=== PATIENT | male | born 1965 | race Caucasian/White ===

== ENCOUNTER → 2017-07-27 | Outpatient (CLI) | payer BC ==
[2016-03-08 13:15] VITALS: BP 120/74
[~2017-07-27] MED LIST: ASPI-482 PO; CARV12.52 PO; METH-38 PO; MULT-460 PO; NITR0.4T SL; OXYC-323 PO; PANT40TA3 PO; SIMV40TA3 PO
--- NOTE | 2017-07-27 15:12 | CARD ---
APPROVED REPORT EXAM: Two-dimensional and M-mode echocardiogram with Doppler and color Doppler. Other Information Quality : GoodHR: 58bpm INDICATION CAD 2D DIMENSIONS Left Atrium(2D)3.9 (1.6-4.0cm)IVSd1.5 (0.7-1.1cm) Aortic Root(2D)3.3 (2.0-3.7cm)LVDd5.3 (3.9-5.9cm) LVOT Diameter2.1 (1.8-2.4cm)PWd1.1 (0.7-1.1cm) LVDs3.5 (2.5-4.0cm)FS (%) 32.4 % SV79.9 mlLVEF(%)60.3 (>50%) Aortic Valve AoV Peak Jt.152.8cm/sAoV VTI36.3cm AO Peak GR.9.3mmHgLVOT Peak Jt.110.7cm/s AO Mean GR.5mmHgAVA (VMAX)1.85cm2 Mitral Valve MV E Usmeizum62.2cm/sMV DECEL QADH544rf MV A Fajowgoo77.6cm/sMV ZMI32um E/A Ratio1.0MVA (PHT)2.44cm2 TDI E/Lateral E'6.9E/Medial E'12.9 Pulmonary Valve PV Peak Lxthhzhb960.1cm/sPV Peak Grad.4mmHg Tricuspid Valve TR P. Mhrdcigh243ge/sTR Peak Gr.9mmHg Pulmonary Vein S1 Shgeehxp49.5cm/sD2 Sdwavafd08.6cm/s LEFT VENTRICLE The left ventricle is normal size. There is mild septal hypertrophy. The left ventricular systolic fu nction is normal and the ejection fraction is within normal range. EF 55% There is grossly normal LV segmental wall motion. The left ventricular diastolic function and filling is normal for age. RIGHT VENTRICLE The right ventricle is normal size. The right ventricular systolic function is normal. ATRIA The left atrium size is normal. The right atrium size is normal. The interatrial septum is intact wit h no evidence for an atrial septal defect or patent foramen ovale as noted on 2-D or Doppler imaging. AORTIC VALVE The aortic valve is thickened but opens well. Doppler and Color Flow revealed no significant aortic r egurgitation. There is no significant aortic valvular stenosis. There is no aortic valvular vegetatio n. MITRAL VALVE The mitral valve is thickened but opens well. There is no evidence of mitral valve prolapse. There is no mitral valve stenosis. Doppler and Color Flow revealed no mitral valve regurgitation noted. TRICUSPID VALVE The tricuspid valve leaflets are thickened , but open well. Doppler and Color Flow revealed trace tri cuspid regurgitation. There is no tricuspid valve prolapse or vegetation. There is no tricuspid valve stenosis. PULMONIC VALVE Pulmonic valve was not visualized well. Doppler and Color Flow revealed mild to moderate pulmonic ab vular regurgitation. There is no pulmonic valvular stenosis. GREAT VESSELS The aortic root is normal in size. PERICARDIAL EFFUSION There is no pleural effusion. There is no evidence of significant pericardial effusion. Critical Notification Critical Value: No <Conclusion> The left ventricular systolic function is normal and the ejection fraction is within normal range. EF 55% There is grossly normal LV segmental wall motion.
== END | disposition home or self-care (01) ==
LOC: ECHO 12:31
PROVIDERS: ATTEND Internal Medicine Cardiovascular Disease
DX: I25.10 Atherosclerotic heart disease of native coronary artery without angina pectoris (principal)
CPT/HCPCS: 93306

== ENCOUNTER → 2018-01-03 | Outpatient (CLI) | payer BC | END | disposition home or self-care (01) | LOC: US 08:14 | DX: E04.1 Nontoxic single thyroid nodule (principal) | CPT/HCPCS: 76942; 88112; 88173; 88305 ==

== ENCOUNTER → 2018-09-17 | Outpatient (CLI) | payer BC ==
[2016-03-08 13:15] VITALS: BP 120/74
[~2018-09-17] MED LIST changes: +CARV12.511 PO; -CARV12.52 PO; +GADOBUTROL 7.5 MMOL/7.5 ML VIAL IV ONE; -OXYC-323 PO; +OXYC1TAB15 PO
--- NOTE | 2018-09-17 16:00 | KCIC ---
EXAMINATION: Magnetic resonance imaging (MRI) of the lumbar spine with and without contrast 09/17/2018 2:45 PM HISTORY: Chronic low back pain with radiculopathy into the right hip. History of discectomy. TECHNIQUE: Multiplanar multi-weighted MRI of the lumbar spine was performed without intravenous contrast using the standard lumbar spine protocol. Contrast information: 11 cc Gadavist. COMPARISON: None available. FINDINGS: There is minimal retrolisthesis of L4 on L5. There is congenital narrowing of the spinal canal secondary to shortened pedicles. Vertebral bodies demonstrate normal signal intensity on all sequences. There are no compression fractures. The conus medullaris terminates at the level of L1. The distal spinal cord signal intensity is normal. There is mild disc height loss with disc desiccation and annular fissures at L4-L5 and L5-S1. Disc desiccation at L2-L3. Limited views of the abdomen and pelvis show no soft tissue abnormality. The aorta is normal. L2-L3: There is disc bulge asymmetric to the left with a left far lateral disc protrusion. There is mild right and moderate left facet arthropathy. There is mild left neuroforaminal stenosis. There is no spinal canal stenosis. L3-L4: There is a moderate disc bulge with apparent right foraminal disc protrusion. Right partial facetectomy and laminectomy changes are identified. No residual right neuroforaminal stenosis. Enhancing granulation tissue is identified along the region of suspected disc protrusion suggestive of scar tissue rather than recurrent disc herniation. No spinal canal stenosis. Olli-mp-xhnbhvvi left neuroforaminal stenosis. L4-L5: There is a circumferential disc bulge with central disc protrusion. There is moderate facet arthropathy. There is mild to moderate bilateral neuroforaminal stenosis. There is mild spinal canal stenosis. L5-S1: The disc is normal in configuration. There is moderate facet arthropathy. There is no neuroforaminal stenosis. There is no spinal canal stenosis. IMPRESSION: Mild degenerative changes of the lumbar spine as described in detail above. Right partial facetectomy and laminectomy changes are identified at L3-L4 without evidence for recurrent disc herniation. Electronically signed by: Laura Alvarez MD (09/17/2018 3:55 PM) [facility]
== END | disposition home or self-care (01) ==
LOC: KCIC MRI 13:56
DX: M47.896 Other spondylosis, lumbar region (principal); M48.061 Spinal stenosis, lumbar region without neurogenic claudication; M12.88 Other specific arthropathies, not elsewhere classified, other specified site; M51.26 Other intervertebral disc displacement, lumbar region; I10 Essential (primary) hypertension
CPT/HCPCS: 72158; A9585

== ENCOUNTER → 2018-12-17 | Outpatient (CLI) | payer BC ==
[2016-03-08 13:15] VITALS: BP 120/74
[~2018-12-17] MED LIST changes: -GADOBUTROL 7.5 MMOL/7.5 ML VIAL IV ONE; +REGADENOSON 0.4 MG/5 ML DISP.SYRIN. IV ONE
--- NOTE | 2018-12-17 11:02 | CARD ---
MR#: [id number] Date of Study: 12/17/2018 Ordering Physician: ARMEN GARCIA, Referring Physician: ARMEN GARCIA Tech: Lilia Milligan RDCS APPROVED REPORT EXAM: Two-dimensional and M-mode echocardiogram with Doppler and color Doppler. Other Information Quality : Good INDICATION Cardiac Disease: CAD 2D DIMENSIONS RVDd3.4 (2.9-3.5cm)Left Atrium(2D)3.8 (1.6-4.0cm) IVSd1.2 (0.7-1.1cm)Aortic Root(2D)3.1 (2.0-3.7cm) LVDd5.3 (3.9-5.9cm)LVOT Diameter2.3 (1.8-2.4cm) PWd1.0 (0.7-1.1cm)LVDs3.9 (2.5-4.0cm) FS (%) 26.2 %SV67.5 ml LVEF(%)50.9 (>50%) Aortic Valve AoV Peak Jt.129.6cm/sAoV VTI24.9cm AO Peak GR.6.7mmHgLVOT Peak Jt.119.5cm/s LVOT VTI 25.83cmAO Mean GR.4mmHg SHANNAN (VMAX)3.83az0ALO (VTI)4.14cm2 Mitral Valve MV E Alwhxlvs83.4cm/sMV DECEL OHYU133mz MV A Diftcgpe59.3cm/sMV NMA84li E/A Ratio0.9MVA (PHT)3.81cm2 TDI E/Lateral E'6.1E/Medial E'12.7 Tricuspid Valve TR P. Dpkxfabs372qj/sRAP PSADESRT3sjNe TR Peak Gr.13ofCmWHMN12ihDl Pulmonary Vein S1 Faqqwhfp75.9cm/sD2 Ahzhvzns66.8cm/s LEFT VENTRICLE The left ventricle is normal size. There is mild asymmetric septal hypertrophy. The Ejection Fraction is 55%. Basal posterior wall hypokinesis. RIGHT VENTRICLE The right ventricle is normal size. The right ventricular systolic function is normal. ATRIA The left atrium size is normal. The right atrium size is normal. The interatrial septum is intact wit h no evidence for an atrial septal defect or patent foramen ovale as noted on 2-D or Doppler imaging. AORTIC VALVE The aortic valve is calcified but opens well. Doppler and Color Flow revealed no significant aortic r egurgitation. There is no significant aortic valvular stenosis. MITRAL VALVE The mitral valve is normal in structure and function. There is no evidence of mitral valve prolapse. There is no mitral valve stenosis. Doppler and Color Flow revealed no mitral valve regurgitation note d. TRICUSPID VALVE The tricuspid valve is normal in structure and function. Doppler and Color Flow revealed trace tricus pid regurgitation. There is no tricuspid valve stenosis. PULMONIC VALVE The pulmonic valve is not well visualized. Doppler and Color Flow revealed trace pulmonic valvular re gurgitation. There is no pulmonic valvular stenosis. GREAT VESSELS The aortic root is normal in size. The ascending aorta is normal in size. The IVC is normal in size a nd collapses >50% with inspiration. PERICARDIAL EFFUSION There is no evidence of significant pericardial effusion. Critical Notification Critical Value: No <Conclusion> Basal posterior wall hypokinesis. The Ejection Fraction is 55%. Doppler and Color Flow revealed trace tricuspid regurgitation. There is no evidence of significant pericardial effusion. Signed by : Armen Garcia, Electronically Approved : 12/17/2018 11:02:27
== END | disposition home or self-care (01) ==
LOC: NM 08:12
PROVIDERS: ATTEND Internal Medicine Cardiovascular Disease
DX: I35.8 Other nonrheumatic aortic valve disorders (principal); I51.7 Cardiomegaly; I25.10 Atherosclerotic heart disease of native coronary artery without angina pectoris
CPT/HCPCS: 93306; J2785

== ENCOUNTER → 2019-04-15 | Outpatient (CLI) | payer BC ==
[2016-03-08 13:15] VITALS: BP 120/74
[~2019-04-15] MED LIST changes: -PANT40TA3 PO; +PANT40TA77 PO; -REGADENOSON 0.4 MG/5 ML DISP.SYRIN. IV ONE
--- NOTE | 2019-04-15 15:03 | KCIC ---
THYROID ULTRASOUND: 04/15/2019 1:15 PM Indication: 53 years old Male. Thyroid swelling with history of nodules. Comparison: Thyroid ultrasound 12/13/2017. TECHNIQUE: Sonographic evaluation of the thyroid gland was performed utilizing grayscale and color Doppler imaging. FINDINGS: Right lobe: Normal in morphology and echotexture without significant hyperemia. Size: 5.1 x 1.5 x 2.2 cm Nodules: Single inferior right thyroid lobe nodule status post negative fine-needle aspiration on 01/03/2018. Nodule measures 1.1 x 0.8 x 1.2 cm and is circumscribed, solid and hypoechoic without significant interval change. Left lobe: Normal in morphology and echotexture without significant hyperemia. Size: 4.3 x 1.3 x 1.6 cm Nodules: There is a 7 x 5 x 7 mm solid, isoechoic to hypoechoic nodule in the inferior left thyroid lobe which is ill-defined without suspicious internal echogenic foci. This nodule is wider than it is tall. (TI-RADS 4) Isthmus: Unremarkable. IMPRESSION: 1. There is a stable 11 x 8 x 12 mm solid nodule in the inferior right thyroid lobe is post FNA on 01/03/2018 with benign pathology reported. 2. 7 x 5 x 7 mm nodule in the inferior left thyroid lobe ( TIRADS 4). This was not definitively seen on the prior examination. Six-month follow-up ultrasound may be of benefit. Electronically signed by: Laura Alvarez MD (04/15/2019 3:00 PM) [facility]
== END | disposition home or self-care (01) ==
LOC: KCIC US 12:54
PROVIDERS: ATTEND Nurse Practitioner
DX: E04.1 Nontoxic single thyroid nodule (principal)
CPT/HCPCS: 76536

== ENCOUNTER 2019-06-13 08:59 | Day surgery (SDC) | payer BC ==
[~2019-06-13] VITALS: Ht 180.3 cm; Wt 115.2 kg
[~2019-06-13 08:59] MED LIST changes: +BUPIVACAINE-EPI 0.25%-1:200000 MPF 30 ML VIAL. INJ ONE; +HYDROmorphone 2 MG/ML VIAL IV PRN; +IV RINGERS,LACTATED 1000ML 1,000 ML IV SCH; +LISI-334 PO; +MORPHINE SULFATE 2 MG/ML VIAL. IV PRN; -NITR0.4T SL; +NITR0.4T24 SL; +ONDANSETRON PF 4 MG/2 ML VIAL. IV PRN; +PROCHLORPERAZINE 10 MG/2 ML VIAL. IV PRN; +TIZA4TAB2 PO; +fentaNYL PF VIAL 100 MCG/2 ML VIAL IV PRN
[2019-06-13] MEDS ORDERED: ACETAMINOPHEN 500 MG TABLET PO ONE ×2 (09:28→09:45)
[2019-06-13] MEDS ORDERED: FAMOTIDINE 20 MG/2 ML VIAL ONE (09:34)
[2019-06-13] MEDS ORDERED: LIDOCAINE 2% PF 5 ML VIAL. ONE (09:34)
[2019-06-13] MEDS ORDERED: ONDANSETRON PF 4 MG/2 ML VIAL. ONE (09:34)
[2019-06-13] MEDS ORDERED: PROPOFOL 20 ML IV ONE (09:34)
[2019-06-13] MEDS ORDERED: MIDAZOLAM HCL/PF 2 MG/2 ML VIAL. ONE (09:35)
[2019-06-13] MEDS ORDERED: ROCURONIUM 50 MG/5 ML VIAL. ONE (09:35)
[2019-06-13] MEDS ORDERED: fentaNYL PF VIAL 100 MCG/2 ML VIAL ONE (09:35)
[2019-06-13] MEDS ORDERED: NEOSTIGMINE METHYLSULFATE 5 MG/5 ML SYRINGE. ONE (10:53)
[2019-06-13] MEDS ORDERED: GLYCOPYRROLATE 1 MG/5 ML VIAL. ONE (10:53)
[2019-06-13] MEDS ORDERED: DESFLURANE 31 TO 60 MINUTES IH ONE (10:56)
[2019-06-13] MEDS ORDERED: oxyCODONE/APAP 5/325 1 TAB TABLET PO ONE ×2 (11:15)
--- NOTE | 2019-06-13 11:19 | PDOC4 ---
Operative Note Operative Note Date: 06/13/2019 Preoperative diagnosis: Pilonidal cyst Postoperative diagnosis: Same Procedure: Pilonidal cystectomy Surgeon: Les Specimen: Pilonidal cyst Dictation: Patient is a 53-year-old male who's had a couple episodes of draining wound on the buttock cleft. Procedure pilonidal cystectomy was explained to the patient detail risk benefits were also discussed including bleeding infection wound healing issues alternatives to this procedure also discussed with the patient who seemed to understand and gave both verbal and written consent to have the procedure performed. Patient was taken to the operating room placed in supine position general anesthesia was initiated once patient was asleep and intubated was then repositioned in the prone positioning his buttocks was prepped and draped usual sterile fashion using ChloraPrep A area around the pilonidal cyst was injected with quarter percent Marcaine with epinephrine elliptical incision was made with a 15 blade scalpel this is carried down through the subcutaneous tissue using electrocautery down to the fascia the tissue was excised sharply and sent for pathology. The wound was then closed in 3 layers a deep layer running 0 Vicryl suture more superficial subcutaneous layer was closed with a running 3-0 Vicryl and the skin was reapproximated with 3-0 nylon horizontal mattress sutures. The wound was then dressed with 4 x 4's Medipore tape. Patient was then repositioned in supine positioning awakened and extubated in the operating room taken to recovery in stable condition all sponge instrument needle counts listed as correct estimated blood loss 5 mL DINO RILEY MD Jun 13, 2019 11:19
--- NOTE | 2019-06-13 11:21 | DISCH ---
DISCHARGE INSTRUCTIONS Condition on Discharge Condition on Discharge: Stable Activity After Discharge Activity Instructions for Disc: Avoid exertion, Progressive ambulation Diet after Discharge Diet after Discharge: Regular Wound Incision Care Other wound/incision instructi: May shower in 24 hours Contacting the after DC Call your doctor for: If your condition worsens Follow-Up Follow up with: Dr. Riley in 2 weeks DINO RILEY MD Jun 13, 2019 11:21
[2019-06-13] MEDS ORDERED: OXYC1TAB15 PO (11:29)
[2019-06-13 11:36] VITALS: BP 120/71
[2019-06-13] MEDS ORDERED: oxyCODONE/APAP 5/325 1 TAB TABLET ONE (11:43)
--- NOTE | 2019-06-17 10:06 | PATHOLOGY ---
[facility] Accession Number: [id number] . 01 Material submitted: . buttock - PILONIDAL CYST . 01 Clinical history: . Pilonidal cyst . 02 Diagnosis: Skin and subcutaneous tissue, buttock: - Linear fibrosis of subcutaneous tissue beneath skin groove with glomus coccygeum. LBQ 06/17/2019 0955 Local . 02 Comment: There is no active pilonidal sinus tract/abscess identified. (JPM/db; 06/14/2019) . 02 Electronically signed: . Kelvin Hernández MD, Pathologist NPI- [id number] . 01 Gross description: . The specimen is received in formalin, labeled "Chong Coppola, pilonidal cyst", is an unoriented ellipse of hairbearing mccray-white skin measuring 4.0 x 1.0 cm with underlying subcutaneous tissue excised to a depth of 2.4 cm. The skin surface has a groove running along the long axis measuring 2.5 cm in length. The specimen is serially sectioned to reveal a burch-white fibrous tissue, contiguous with the skin groove. No discrete sinus tract is identified. Surgery Teacher tissue is submitted in A1-A3. ([facility]; 06/13/2019) [facility] 06/14/2019 1607 Local . 02 Pathologist provided ICD-10: D18.09 . 02 CPT . 936710 Specimen Comment: A courtesy copy of this report has been sent to Specimen Comment: [phone], . Specimen Comment: Report sent to / DR CLAY Performed at: [address], [place], [place] [id number] MD Julián Hall MD Phone: [phone] Performed at: 02 [facility] [address] [place], [place] [id number] MD Kelvin Hernández MD Phone: [phone]
== END 2019-06-13 12:12 | disposition home or self-care (01) ==
LOC: SURG 08:59
PROVIDERS: ATTEND Surgery
DX: L05.91 Pilonidal cyst without abscess (principal); L90.5 Scar conditions and fibrosis of skin; I11.9 Hypertensive heart disease without heart failure; E78.00 Pure hypercholesterolemia, unspecified; K21.9 Gastro-esophageal reflux disease without esophagitis; I25.10 Atherosclerotic heart disease of native coronary artery without angina pectoris; Z87.891 Personal history of nicotine dependence; Z95.5 Presence of coronary angioplasty implant and graft; Z72.89 Other problems related to lifestyle
CPT/HCPCS: 11771; A7015; J1956; J2001; J2250; J2405; J2704; J2710; J3010; J3490; J7120

== ENCOUNTER → 2020-01-17 | Outpatient (CLI) | payer BC ==
[~2020-01-17] MED LIST changes: -BUPIVACAINE-EPI 0.25%-1:200000 MPF 30 ML VIAL. INJ ONE; -HYDROmorphone 2 MG/ML VIAL IV PRN; -IV RINGERS,LACTATED 1000ML 1,000 ML IV SCH; -MORPHINE SULFATE 2 MG/ML VIAL. IV PRN; -ONDANSETRON PF 4 MG/2 ML VIAL. IV PRN; -PROCHLORPERAZINE 10 MG/2 ML VIAL. IV PRN; +SIMV40TA18 PO; -SIMV40TA3 PO; -fentaNYL PF VIAL 100 MCG/2 ML VIAL IV PRN
--- NOTE | 2020-01-17 10:38 | CARD ---
MR#: [id number] Date of Study: 01/17/2020 Ordering Physician: ARMEN BARR, Referring Physician: ARMEN BARR, Tech: Tia Phillips APPROVED REPORT EXAM: Two-dimensional and M-mode echocardiogram with Doppler and color Doppler. Other Information Quality : AverageHR: 59bpm Technically limited study due to body habitus. INDICATION Cardiac Disease: CAD RISK FACTORS Hypertension Hyperlipidemia 2D DIMENSIONS RVDd3.2 (2.9-3.5cm)Left Atrium(2D)3.8 (1.6-4.0cm) IVSd1.2 (0.7-1.1cm)Aortic Root(2D)3.5 (2.0-3.7cm) LVDd5.1 (3.9-5.9cm)LVOT Diameter2.2 (1.8-2.4cm) PWd1.2 (0.7-1.1cm)LVDs3.6 (2.5-4.0cm) FS (%) 29.8 %SV69.2 ml LVEF(%)56.6 (>50%) Aortic Valve AoV Peak Jt.141.8cm/sAoV VTI28.7cm AO Peak GR.8.0mmHgLVOT Peak Jt.104.6cm/s AO Mean GR.4mmHgAVA (VMAX)2.06cm2 Mitral Valve MV E Iwsfhpfe39.1cm/sMV DECEL CQQN068wc MV A Zabchzjf30.4cm/sMV E Mean Gr.1mmHg MV GCZ86auH/A Ratio1.2 MVA (PHT)3.74cm2 TDI E/Lateral E'7.0E/Medial E'7.7 Pulmonary Valve PV Peak Roxtwkyb508.4cm/sPV Peak Grad.5mmHg Tricuspid Valve TR P. Bhjpanrb370lc/sRAP RFLSFTKO1aePl TR Peak Gr.46uzQlMTBN85vmQt Pulmonary Vein S1 Hbobnjyv94.2cm/sD2 Apsfgtan73.8cm/s PVa yorvoakb880qhsz LEFT VENTRICLE The left ventricle is normal size. There is borderline to mild concentric left ventricular hypertroph y. Basal posterior wall hyopkinesis. The Ejection Fraction is 55-60%. RIGHT VENTRICLE The right ventricle is normal size. There is normal right ventricular wall thickness. The right ventr icular systolic function is normal. ATRIA The left atrium size is normal. The right atrium is mildly dilated. The interatrial septum is intact with no evidence for an atrial septal defect or patent foramen ovale as noted on 2-D or Doppler imagi ng. AORTIC VALVE The aortic valve is normal in structure and function. Doppler and Color Flow revealed no significant aortic regurgitation. There is no significant aortic valvular stenosis. MITRAL VALVE The mitral valve is normal in structure and function. There is no evidence of mitral valve prolapse. There is no mitral valve stenosis. Doppler and Color Flow revealed no mitral valve regurgitation note d. TRICUSPID VALVE The tricuspid valve is normal in structure and function. Doppler and Color Flow revealed trace tricus pid regurgitation with an estimated PAP of 26 mmHg. There is no tricuspid valve stenosis. PULMONIC VALVE The pulmonic valve is not well visualized. Doppler and Color Flow revealed no pulmonic valvular regur gitation. GREAT VESSELS The aortic root is normal in size. The ascending aorta is normal in size. The IVC is normal in size a nd collapses >50% with inspiration. PERICARDIAL EFFUSION There is no evidence of significant pericardial effusion. Critical Notification Critical Value: No <Conclusion> Basal posterior wall hyopkinesis. The Ejection Fraction is 55-60%. Trace tricuspid regurgitation with an estimated PAP of 26 mmHg. There is no evidence of significant pericardial effusion. Signed by : Armen Barr, Electronically Approved : 01/17/2020 10:37:27
== END | disposition home or self-care (01) ==
LOC: ECHO 07:47
PROVIDERS: ATTEND Internal Medicine Cardiovascular Disease
DX: I11.9 Hypertensive heart disease without heart failure (principal); I25.10 Atherosclerotic heart disease of native coronary artery without angina pectoris
CPT/HCPCS: 93306

== ENCOUNTER → 2020-08-17 | Outpatient (CLI) | payer BC ==
[~2020-08-17] MED LIST changes: +REGADENOSON 0.4 MG/5 ML DISP.SYRIN. IV ONE
--- NOTE | 2020-08-18 14:04 | RAD ---
MR#: [id number] Date of Study: 08/18/2020 Ordering Physician: ARMEN GARCIA Referring Physician: MARIBELL FLEMING Tech: RT Aislinn Cuba) (N) APPROVED REPORT Test Type: Pharmacological Stress Nurse/Tech: ESVIN OTTO Test Indications: CAD Cardiac History: STENT, HTN- SEE EMR Medications: SEE EMR Medical History: SEE EMR Resting ECG: SR WITH PROLONGED QT INTERVAL Resting Heart Rate: 60 bpm Resting Blood Pressure: 134/81mmHg Pretest Chest Pain: No chest pain Nurse/Tech Notes S1S2, LUNGS CTA, PT DENIED CP OR SOA. VSS. Consent: The procedure was explained to the patient in lay terms. Informed consent was witnessed. Jeff eout was entered into [employer]. History and Stress Test performed by RT Paulo (Robert) (N) Pharm. Details Pharmacologic stress testing was performed using 0.4mg per 5ml of regadenoson given intravenously ove r 7-10 seconds. Stress Symptoms VSS, PT DENIED CP OR SOA. TOLERATED TEST WELL. NO COMPLAINTS. POST EXERCISE Reason for Termination: Infusion complete Max HR: 82 bpm Max Blood Pressure: 134/81mmHg Blood Pressure response to exercise: Normal blood pressure response during stress. Heart Rate response to exercise: WNL Chest Pain: No. Arrhythmia: No. NO SIGNIFICANT CHANGES FROM BASELINE EKG. ST Change: No. INTERPRETATION Stress EKG Conclusion: Baseline EKG showed sinus rhythm. No ischemic changes at peak stress. No arr hythmias. Imaging Protocol IMAGE PROTOCOL: Rest Tc-99m/stress Tc-99m 2 days Rest: Stress: Viability: Radiopharm.Tc99m UobxqsygjDr51k Sestamibi Xfpt59nFf 30.2mCi Duration 15min. 15min. Img Date 08/17/2020 08/18/2020 Inj-Img Xiqy28sux. 60min. Rest Admin Site:IV - Left HandAdministrator:RT Aislinn Cuba)(N) Stress Admin Site: IV - Left HandAdministrator: RT Aislinn Bates)(N) STRESS DATA End Diast. Vol.135.0mlAv. Heart Rate65.0bpm End Syst. Vol.39.0mlCO Index BSA0.0L/min Myocardial Ukwg477.0gEject. Fvczqonq23.0% Stress Rates Pk. Fill Rate2.21EDV/secLVtime Pk. Fill 290.80msec Pk. Empty Rate3.20ESV/secLVtime Pk. Svuua682.47msec 1/3 Pk. Fill1.61EDV/sec Stress Scores Regional WT0.00Summed WT6.00 Regional WM0.00Summed WM0.00 LV Perfusion Scintigraphic images showed small fixed defect involving the basal inferolateral wall consistent with prior myocardial infarction without any reversibility. Wall Motion Normal left ventricle systolic function with ejection fraction calculated at 71%. LV Perf. Quant 17 Seg. SSS6.00 17 Seg. SRS5.00 17 Seg. SDS2.00 Stress Defect Extent (% LAD)0.00Rest Defect Extent (% LAD)0.00Rev. Defect Extent (% LAD)0.00 Stress Defect Extent (% LCX) 35.00Rest Defect Extent (% LCX)52.50Rev. Defect Extent (% LCX)7.50 Stress Defect Extent (% RCA)13.30Rest Defect Extent (% RCA)0.00Rev. Defect Extent (% RCA)12.20 Stress Defect Extent (% CHRIS)11.70Rest Defect Extent (% CHRIS)13.00Rev. Defect Extent (% CHRIS)5.70 Conclusion 1. Regadenoson cardioisotope stress test showed small infarct involving the basal inferolateral wall without any ischemia. 2. Normal left ventricular systolic function with ejection fraction calculated at 71%. 3. Low risk for cardiac events. Signed by : Armen Garcia, Electronically Approved : 08/18/2020 14:03:37
== END ==
LOC: NM 14:03
PROVIDERS: ATTEND Internal Medicine Cardiovascular Disease
DX: I25.10 Atherosclerotic heart disease of native coronary artery without angina pectoris (principal); I10 Essential (primary) hypertension; Z95.5 Presence of coronary angioplasty implant and graft
CPT/HCPCS: 78452; A9500; 93017; J2785